=== PATIENT | male | born 1960 | race Two or more races ===

== ENCOUNTER 2017-09-20 03:24 | Inpatient (IN) | payer MEDICAID, OTHER ==
[~2017-09-20] VITALS: Ht 177.8 cm; Wt 153.8 kg
--- NOTE | 2017-09-20 03:26 | NUR ---
EMT AT BEDSIDE FOR EKG.
--- NOTE | 2017-09-20 03:28 | NUR ---
PT TO ER BED 13. BIBRA FROM HOME C/O CP X 2 HOURS, DENIES SOB. 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 PT VSS/NAD NOTED/RESP EVEN UNLABORED/SKIN WARM AND DRY/DENIES N-V-D/AFEBRILE/AOX4. AWAITING MD MELVIN.
--- NOTE | 2017-09-20 03:45 | NUR ---
PT STATES HE IS PAIN FREE AT THIS TIME. DENIES CP/SOB.
[2017-09-20] MEDS ORDERED: NITROGLYCERIN PACKET 1 GM PACKET ONE (03:48)
--- NOTE | 2017-09-20 03:50 | NUR ---
18G IV TO L AC X 1 ATTEMPT USING ASEPTIC TECHNIQUE, BLOOD HANDED OVER TO THE LAB AT THE BEDSIDE. IV FLUSHES EASILY WITH NS, NO S/S INFILTRATION NOTED AT THIS TIME.
[2017-09-20] MEDS ORDERED: NITROGLYCERIN PACKET 1 GM PACKET TD ONE (04:00)
[2017-09-20 04:04] LABS: BASOPHILS % (AUTO) 0.2 % (0.0-2.0); EOSINOPHILS % (AUTO) 1.9 % (0.0-6.0); HEMATOCRIT 46 % (39-51); HEMOGLOBIN 15.1 g/dL (13.5-17.5); LYMPHOCYTES # (AUTO) 1.8 /CMM (0.8-4.8); LYMPHOCYTES % (AUTO) 13.6 % (20.0-44.0); MEAN CORPUSCULAR HGB CONC 33 g/dl (31.0-36.0); MEAN CORPUSCULAR VOLUME 95 fL (80-96); MONOCYTES # (AUTO) 0.8 /CMM (0.1-1.30); MONOCYTES % (AUTO) 5.9 % (2.0-12.0); NEUTROPHILS # (AUTO) 10.1 /CMM (1.8-8.9); NEUTROPHILS % (AUTO) 78.4 % (43.0-81.0); PLATELET COUNT (AUTO) 239 /CMM (150-450); RDW COEFFICIENT OF VARIATION 14.6 (11.5-15.0); WHITE BLOOD COUNT (AUTO) 12.8 K/uL (4.3-11.0)
[2017-09-20 04:15] LABS: CALCIUM, SERUM 8.6 mg/dL (8.5-10.1); CARBON DIOXIDE 28 mmol/L (21-32); CHLORIDE 104 mmol/L (98-107); CREATININE 0.7 mg/dL (0.6-1.3); GLUCOSE 108 mg/dL (74-106); POTASSIUM 4.2 mmol/L (3.5-5.1); SODIUM SERUM 139 mmol/L (136-145); UREA NITROGEN, BLOOD 13 mg/dL (7-18)
[2017-09-20 04:20] LABS: D-DIMER 0.61 mg/L(FEU (0.17-0.50); INR 0.91 (0.87-1.13)
[2017-09-20 04:22] LABS: TROPONIN I < 0.017 ng/mL (0.00-0.056)
[2017-09-20 04:29] LABS: ALANINE AMINOTRANSFERASE 41 U/L (12-78); ALBUMIN 3.5 g/dL (3.4-5.0); ALKALINE PHOSPHATASE 65 U/L (46-116); ASPARTATE AMINOTRANSFERASE 16 U/L (15-37); B-TYPE NATRIURETIC PEPTIDE 290 PG/ML (0-125); BILIRUBIN,TOTAL 0.3 mg/dL (0.2-1.0); TOTAL PROTEIN, SERUM 7.4 g/dL (6.4-8.2)
--- NOTE | 2017-09-20 05:39 | NUR ---
ULTRASOUND AT BEDSIDE.
--- NOTE | 2017-09-20 05:58 | NUR ---
REPORT GIVEN TO ASHLEY HOLLY FOR JOSEPH.
--- NOTE | 2017-09-20 06:05 | NUR ---
TELE/RN NOTES RECEIVED PATIENT FROM ER, NEW ADMITTED PATIENT IS A 56 Y,O [place] SPEAKING MORBIDLY OBESE WITH DX OF HTN, SMOKER AND WITH NO PRIMARY PHYSICIAN AND HAS NOT HAD ANY PHYSICAL CHECK UPS. HE WAS ADMITTED DUE TO CHEST PAIN, FOR 32 HOURS , HE TOOK ASPIRIN AND AT THE er AFTER BEING GIVEN WITH NITRO ON CHEST WALL PATIENT REPORTED PAIN FREE. , ARRIVED ON A GURNEY, ACCOMPANIED BY FAMILY MEMBER, WITH 1/10 PAIN, AND COMFORTABLE IN SITTING POSITION, O2 SAT IN ROOM AIR BET 94-95, PULS EAT 80'S, B/P WNL SBP IN 120/. AFEBRILE, REPORTED HAD ONE BM YESTERDAY. EKG READING NSR AND TROPONIN AT <0.17, ELEVATED WBC 12.8, BNP HIGH AT 290, NO DVY RESULTED ON DUPLEX BLOOD DRAW FOR LIPID PANEL. BELONGINGS RECEIVED AND RECONCILED,ROOM ORIENTATION PROVIDED, ATTENDING MD GUZMAN PRESCRIBED ADMIT ORDERS. CALL LIGHTS WITHIN REACH. WILL ENDORSE TO AM RN FOR JOSEPH.
--- NOTE | 2017-09-20 06:10 | NUR ---
PT TRANSPORTED VIA STRETCHER TO TELE 322.2 ON SCREEN OPERATOR WITH RN PER ACLS PROTOCOL. VSS.
[2017-09-20 06:13] VITALS: BP 126/71
[2017-09-20] MEDS ORDERED: HYDROCODONE/APAP 5/325MG 1 EACH TABLET PO PRN (06:30)
[2017-09-20] MEDS ORDERED: MAG HYDROX/AL HYDROX/SIMETH 30 ML UDC PO PRN (06:30)
[2017-09-20] MEDS ORDERED: TEMAZEPAM 15 MG CAPSULE PO PRN (06:30)
[2017-09-20] MEDS ORDERED: MAGNESIUM HYDROXIDE 30 ML UDC PO PRN (06:30)
[2017-09-20] MEDS ORDERED: MORPHINE SULFATE INJ 2 MG/ML DISP.SYRIN IV PRN (06:30)
[2017-09-20] MEDS ORDERED: ACETAMINOPHEN 325 MG TABLET PO PRN (06:30)
[2017-09-20] MEDS ORDERED: NITROGLYCERIN 0.4 MG/TAB BOTTLE SL PRN (06:30)
[2017-09-20] MEDS ORDERED: ONDANSETRON HCL/PF 4 MG/2 ML VIAL IVP PRN (06:30)
[2017-09-20 07:09] LABS: CHOLESTEROL 271 mg/dL (<200); HDL CHOLESTEROL 36 mg/dL (40-60); LDL 211 mg/dL (0-99); TRIGLYCERIDES 178 mg/dL (30-150)
--- NOTE | 2017-09-20 07:10 | NUR ---
telesales team leader initial notes Received patient in bed, awake, head of bed elevated, no SOB or distress noted, on room air and tolerated well. IV intact and patent HL only. Patient is NPO for scheduled CT pulmonary angiogram, but patient refused the scan, explained the risk and benefits x 3 and still refused. But per they will think about it and wait for the lab result and they will decide. Dr. Krause came seen and examined the patient and informed about the CT scan pulmonary and patient and verbalized that they will not do the scan and they will think about it for now. On tele monitor SR heart rate of 92. Call light with in patient reach, will continue to monitor.
[2017-09-20] MEDS ORDERED: PANTOPRAZOLE 40 MG TABLET.DR PO SCH (07:30)
[2017-09-20 08:00] VITALS: BP 139/73
[2017-09-20 08:22] VITALS: BP 139/73
[2017-09-20] MEDS ORDERED: ASPIRIN 81 MG TAB.CHEW PO SCH (09:00)
[2017-09-20] MEDS ORDERED: CARVEDILOL 12.5 MG TABLET PO SCH (09:00)
[2017-09-20] MEDS ORDERED: ATORVASTATIN 40 MG TABLET PO SCH (09:00)
--- NOTE | 2017-09-20 13:25 | NUR ---
ms creative intern AMA notes discharge patient via Against medical advice. carole came seen and examined the patient and informed about to have 2D echo and per patient he want's to go home today. Explained the risk and benefits x 3 and still insisted to go home. Miguel at bedside and made aware. Signed AMA form and filed in the chart. Health teaching and education rendered. Informed patient to follow up with primary health care physician as soon as possible. Informed if he feels to have a chest pain do not hesitate to go to the emergency room or call paramedics and made aware. Discontinued IV access and pressured applied to prevent bleeding. Patient left the hospital via ambulatory accompanied by and daughter, no complaint of pain or discomfort at this time, on room air and tolerated well. Vital signs checked and recorded. Charge nurse and RN supervisory forester made aware of the AMA.
== END 2017-09-20 13:30 | disposition left against medical advice (07) | DRG 392 ==
LOC: ER 03:27 → TELE 05:47
PROVIDERS: ADMIT Nurse Practitioner Acute Care; ATTEND Registered Nurse
DX: K21.9 Gastro-esophageal reflux disease without esophagitis (principal); Z68.42 Body mass index [BMI] 45.0-49.9, adult; I10 Essential (primary) hypertension; E78.5 Hyperlipidemia, unspecified; E66.9 Obesity, unspecified; E66.01 Morbid (severe) obesity due to excess calories; G47.30 Sleep apnea, unspecified; F17.200 Nicotine dependence, unspecified, uncomplicated; D72.829 Elevated white blood cell count, unspecified; Z91.19 Patient's noncompliance with other medical treatment and regimen
CPT/HCPCS: 36415; 71045-TC; 80048-TC; 80061-TC; 80076-TC; 83880; 84484-TC; 85025-TC; 85378-TC; 85730-TC; 87081-TC; 93970-TC